=== PATIENT | male | born 1955 | race African-American/Black ===

== ENCOUNTER 2020-10-31 15:38 | Emergency (ER) | payer OTHER ==
[2020-10-31] MEDS ORDERED: GOOD NEIGHBOR200 M1 PO (16:09)
[2020-10-31 16:37] LABS: HEMOGLOBIN 13.9 g/dL (13.5-18.0); MEAN CELL VOLUME 95 fl (78-100); MEAN CORPUSCULAR HEMOGLOBIN 27 pg (27-31); MEAN CORPUSCULAR HGB CONC 28 g/dL (33-37); MEAN PLATELET VOLUME 10.3 fl (7.4-10.4); PLATELET COUNT 186 K/mm3 (130-400); RED BLOOD COUNT 5.18 M/mm3 (4.20-5.60); RED CELL DISTRIBUTION WIDTH 12.7 % (11.5-14.5); WHITE BLOOD COUNT 10.4 K/mm3 (4.8-10.8)
[2020-10-31 16:38] LABS: ALBUMIN 4.1 g/dL (3.4-4.8)
[2020-10-31 16:39] LABS: POTASSIUM 4.4 mmol/L (3.5-5.1); SODIUM 138 mmol/L (136-145)
[2020-10-31 16:40] LABS: CALCIUM 9.6 mg/dL (8.3-10.5)
[2020-10-31 16:41] LABS: GLUCOSE 118 mg/dL (75-110)
[2020-10-31 16:42] LABS: CARBON DIOXIDE 22 mmol/L (23-31)
[2020-10-31 16:43] LABS: TOTAL BILIRUBIN 2.4 mg/dL (0.2-1.2)
[2020-10-31 16:46] LABS: AST-SGOT 324 U/L (5-34)
[2020-10-31 16:48] LABS: ALT/SGPT 92 U/L (0-55)
[2020-10-31 16:56] LABS: TROPONIN-I > 50.00 ng/mL (<0.030)
[2020-10-31 17:12] LABS: D-DIMER 0.71 mg/L FEU (0.15-0.50)
[2020-10-31 17:19] LABS: LYMPHOCYTE 10 % (20-51); MONOCYTE 12 % (3-10); NEUTROPHILS 78 % (42-75)
[2020-10-31 18:19] LABS: PROTHROMBIN TIME 10.1 SECONDS (9.0-12.0)
[2020-10-31 19:09] LABS: URINE APPEARANCE HAZY; URINE BILIRUBIN 1+ (NEGATIVE); URINE BLOOD 50 ery/uL (NEGATIVE); URINE COLOR YELLOW; URINE GLUCOSE NEGATIVE (NEGATIVE); URINE KETONE NEGATIVE (NEGATIVE); URINE LEUKOCYTE ESTERASE NEGATIVE (NEGATIVE); URINE NITRATE NEGATIVE (NEGATIVE); URINE PROTEIN(semi-quant) 1+ mg/dL (NEGATIVE); URINE UROBILINOGEN NORMAL (NORMAL); URINE WBC 0-1 /hpf (0-3)
[2020-10-31 19:10] LABS: URINE MUCUS PRESENT (NOT PRESENT)
[2020-10-31 20:25] VITALS: BP 117/91
== END 2020-10-31 20:25 | disposition short-term general hospital (02) ==
LOC: ED 15:38
PROVIDERS: Physician Assistant
DX: I21.4 Non-ST elevation (NSTEMI) myocardial infarction (principal); R74.8 Abnormal levels of other serum enzymes; F17.210 Nicotine dependence, cigarettes, uncomplicated; Z20.822 Contact with and (suspected) exposure to COVID-19
CPT/HCPCS: J1644; J7030; Q9967